=== PATIENT | male | born 1970 | race Caucasian/White ===

== ENCOUNTER 2021-03-14 14:43 | Emergency (ER) | payer BC, OTHER ==
[~2021-03-14] VITALS: Ht 182.9 cm; Wt 94.3 kg
[2021-03-14] MEDS ORDERED: diphenhydrAMINE 50 MG/1 ML VIAL IM ONE (15:30)
[2021-03-14] MEDS ORDERED: KETOROLAC TROMETHAMINE 60 MG INJ IM ONE ×2 (15:30→15:34)
[2021-03-14] MEDS ORDERED: METOCLOPRAMIDE HCL 10 MG/2 ML VIAL IM ONE (15:30)
[2021-03-14] MEDS ORDERED: diphenhydrAMINE 50 MG/1 ML VIAL ONE (15:33)
[2021-03-14] MEDS ORDERED: METOCLOPRAMIDE HCL 10 MG/2 ML VIAL ONE (15:34)
--- NOTE | 2021-03-14 16:00 | NUR ---
Pt resting with guest at bedside. States improvement in pain since medication administration. Denies any adverse event from medication. XR tech at bedside performing exam now.
[2021-03-14] MEDS ORDERED: NAPR-1164 PO (17:31)
[2021-03-14] MEDS ORDERED: CYCL10TA9 PO (17:31)
--- NOTE | 2021-03-14 17:37 | NUR ---
Pt has been cleared for DC by BETHANIE. Written and verbal after care instructions given, along with paper prescriptions. Patient and spouse verbalizes understanding of instructions. Stressed to follow up with PCP or return to ER for worsening s/s. Patient has been discharged to home in stable condition. Patient ambulated out of ED to home in steady gait and stable condition.
[2021-03-14 17:39] VITALS: BP 113/72
== END 2021-03-14 17:40 | disposition home or self-care (01) ==
LOC: ER 14:47
DX: S13.9XXA Sprain of joints and ligaments of unspecified parts of neck, initial encounter (principal); S33.5XXA Sprain of ligaments of lumbar spine, initial encounter; V49.40XA Driver injured in collision with unspecified motor vehicles in traffic accident, initial encounter; Y92.411 Interstate highway as the place of occurrence of the external cause; R03.0 Elevated blood-pressure reading, without diagnosis of hypertension
CPT/HCPCS: 72050; 96372 ×2; 99284; J1200; J1885; J2765; A4663